=== PATIENT | male | born 1955 | race Caucasian/White ===

== ENCOUNTER 2017-10-30 19:53 | Emergency (ER) | payer SELFPAY ==
[~2017-10-30] VITALS: Ht 188 cm; Wt 105.3 kg
[2017-10-30 20:25] LABS: BASOPHIL (%) 0.2 % (0-1); EOSINOPHIL (%) 0.1 % (0-5); HEMATOCRIT 43.3 % (38.0-50.0); HEMOGLOBIN 15.1 G/DL (12.5-16.6); IMMATURE GRANULOCYTE (%) 0.5 % (0.0-0.7); LYMPHOCYTE (%) 15.3 % (15-42); LYMPHOCYTE COUNT 1.3 K/uL (1.0-2.8); MCH 32.1 PG (29.0-34.0); MCHC 34.9 G/DL (30.0-36.0); MCV 92.1 FL (86-99); MONOCYTE (%) 10.3 % (3-12); MONOCYTE COUNT 0.9 K/uL (0-0.8); NEUTROPHIL (%) 73.6 % (45-76); NEUTROPHIL COUNT 6.4 K/uL (1.8-6.4); PLATELET COUNT 172 K/uL (156-360); RBC DIS.WIDTH-CV 14.3 % (11.8-14.6); RBC DIS.WIDTH-SD 48.9 % (39-53); WHITE BLOOD COUNT 8.7 K/uL (4.1-10.2)
[2017-10-30 20:33] LABS: CHLORIDE 105 mEq/L (99-109); POTASSIUM 3.8 mEq/L (3.7-5.4); SODIUM 137 mEq/L (136-147)
[2017-10-30 20:34] LABS: GLUCOSE 97 mg/dL (70-99)
[2017-10-30 20:39] LABS: CREATININE 0.8 mg/dL (0.6-1.3); UREA NITROGEN (BUN) 15 mg/dL (9-23)
[2017-10-30 20:40] LABS: GFR ESTIMATE (CALCULATED) > 59 mL/min/ (58.99-99999)
[2017-10-30 20:51] LABS: ALBUMIN 3.7 g/dL (3.2-4.8)
[2017-10-30 20:54] LABS: TOTAL PROTEIN 7.4 g/dL (6.4-8.3)
[2017-10-30 20:55] LABS: TOTAL BILIRUBIN 0.4 mg/dL (0.0-1.0)
[2017-10-30 20:56] LABS: ALKALINE PHOSPHATASE 65 IU/L (3-129)
[2017-10-30 20:59] LABS: AST (GOT) 26 IU/L (2-34); DIRECT BILIRUBIN 0.2 mg/dL (0.0-0.3)
[2017-10-30 21:00] LABS: ALT (GPT) 15 IU/L (3-49)
[2017-10-30] MEDS ORDERED: ROBITUSSIN AC,T10 ML PO (22:34)
[2017-10-30] MEDS ORDERED: ZOFRAN4 MG PO (22:34)
[2017-10-30 22:58] VITALS: BP 120/62
== END 2017-10-30 23:54 | disposition home or self-care (01) ==
LOC: EME 19:53
PROVIDERS: Emergency Medicine
DX: J10.1 Influenza due to other identified influenza virus with other respiratory manifestations (principal); R05 Cough; F17.210 Nicotine dependence, cigarettes, uncomplicated; Z96.641 Presence of right artificial hip joint
CPT/HCPCS: 71046; 80048; 80076; 81003; 83605; 85025; 87502; 94640; 99281; 99285; J1885; J2405; J7030